=== PATIENT | female | born 1985 | race African-American/Black ===

== ENCOUNTER 2018-03-29 02:56 | Emergency (ER) | payer OTHER ==
[~2018-03-29] VITALS: Ht 157.5 cm; Wt 100.2 kg
[~2018-03-29 02:56] MED LIST: ADVAIR HFA 230M12 GM INH; ALBUTEROL2.5 MG/0.5 INH; APAP500 PO; DULERA 100 MCG/13 GM IH; DULERA 100 MCG/13 GM INH; FLEXERIL PO; IBUPROFEN 800800 M1 PO; IBUPROFEN 800800 MG PO; LEVAQUIN 500 M500 M2 PO; MULTIVITAMINS1 EAC7 PO; NORCO 5-325 TA1 EACH PO; PREDNISONE 10 M10 MG PO; PREDNISONE 20 M20 MG PO; PROAIR HFA8.5 GM INH; TRINATE TABLET1 TAB PO; WOMEN'S DAILY1 EAC2 PO; ZPAK PO
[2018-03-29 03:17] LABS: URINE BILIRUBIN NEGATIVE (Negative); URINE BLOOD 2+ (Negative); URINE CLARITY CLEAR; URINE COLOR YELLOW; URINE GLUCOSE-RANDOM* NEGATIVE (Negative); URINE KETONES NEGATIVE (Negative); URINE LEUKOCYTES NEGATIVE (Negative); URINE NITRITE NEGATIVE (Negative); URINE PROTEIN (DIPSTICK) NEGATIVE (Negative); URINE SPECIFIC GRAVITY >= 1.030 (1.005-1.035); URINE UROBILINOGEN 0.2 E.U./dl (0.2-1.0)
[2018-03-29] MEDS ORDERED: IBUPROFEN 400400 M1 PO (03:25)
[2018-03-29 03:32] VITALS: BP 142/90
[2018-03-29 03:35] LABS: MUCUS 4-6 Moderate strn/LPF (None Seen); SQUAMOUS 0-3 Few /LPF (0-3)
[2018-03-29] MEDS ORDERED: ALEVE220 MG PO (03:35)
[2018-03-29 03:36] LABS: BACTERIA 1-9 Few /HPF (None Seen); CASTS None Seen /LPF (None Seen); CRYSTALS None Seen /LPF (None Seen); URINE RBC 3-10 Few /HPF (0-2); URINE WBC 0-5 Rare /HPF (0-5)
== END 2018-03-29 03:36 | disposition home or self-care (01) ==
LOC: ER 02:56
PROVIDERS: Student in an Organized Health Care Education/Training Program
DX: M76.31 Iliotibial band syndrome, right leg (principal); J45.909 Unspecified asthma, uncomplicated; G47.30 Sleep apnea, unspecified; G89.29 Other chronic pain; M54.9 Dorsalgia, unspecified

== ENCOUNTER 2020-08-25 17:12 | Emergency (ER) | payer OTHER ==
[~2020-08-25] VITALS: Ht 160 cm; Wt 99.8 kg
[~2020-08-25 17:12] MED LIST changes: +ALEVE220 MG PO; +IBUPROFEN 400400 M1 PO
[2020-08-25 17:34] LABS: URINE BILIRUBIN NEGATIVE (Negative); URINE BLOOD 3+ (Negative); URINE CLARITY CLEAR; URINE COLOR YELLOW; URINE GLUCOSE-RANDOM* NEGATIVE (Negative); URINE KETONES NEGATIVE (Negative); URINE NITRITE-REFLEX NEGATIVE (Negative); URINE PROTEIN (DIPSTICK) NEGATIVE (Negative); URINE SPECIFIC GRAVITY >= 1.030 (1.005-1.035); URINE UROBILINOGEN 0.2 E.U./dl (0.2-1.0)
[2020-08-25 17:35] LABS: URINE LEUKOCYTES-REFLEX 1+ (Negative)
[2020-08-25 17:41] LABS: CASTS None Seen /LPF (None Seen); CRYSTALS None Seen /LPF (None Seen); SQUAMOUS >10 Many /LPF (0-3); URINE RBC 3-10 Few /HPF (NONE SEEN); URINE WBC-REFLEX 0-5 Rare /HPF (0-5)
[2020-08-25 17:57] LABS: ABSOLUTE NEUTROPHILS 5.3 thou/uL (1.4-8.2); BASOPHILS 0.9 % (0.0-2.0); EOSINOPHILS 3.8 % (0.0-3.0); HEMOGLOBIN 11.9 gm/dL (12.0-15.0); LYMPHOCYTES 37.4 % (24.0-44.0); MCH 29.8 pg (26.0-34.0); MCHC 33.1 g/dL (28.0-37.0); MCV 89.9 fL (80.0-100.0); MONOCYTES 10.2 % (1.0-8.0); PLATELET COUNT 368 thou/uL (150-400); POLYS 47.7 % (36.0-66.0); RDW 13.3 % (10.5-14.5); WBC 11.1 thou/uL (4.0-11.0)
[2020-08-25 18:03] LABS: CALCIUM 8.9 mg/dL (8.5-10.1); CREATININE 0.8 mg/dL (0.6-1.0); POTASSIUM 4.1 mmol/L (3.5-5.1)
[2020-08-25 18:10] LABS: ALBUMIN 3.6 g/dL (3.4-5.0); TOTAL BILIRUBIN 0.3 mg/dL (0.2-1.0); TOTAL PROTEIN 7.6 g/dL (6.4-8.2)
[2020-08-25 19:37] VITALS: BP 138/68
== END 2020-08-25 19:40 | disposition home or self-care (01) ==
LOC: ER 17:12
PROVIDERS: Physician Assistant
DX: M79.89 Other specified soft tissue disorders (principal); N83.202 Unspecified ovarian cyst, left side; N93.8 Other specified abnormal uterine and vaginal bleeding; J45.909 Unspecified asthma, uncomplicated; G47.30 Sleep apnea, unspecified